=== PATIENT | female | born 1990 ===

== ENCOUNTER 2016-10-16 12:34 | Emergency (ER) | payer MEDICAID, OTHER ==
[2016-10-16 12:35] VITALS: BMI 27.8
[2016-10-16 12:55] VITALS: BP 95/63; PULSE 74; RESP 14; TEMP 98; O2SAT 100
[2016-10-16] MEDS ORDERED: Sodium Chloride 0.9% 1,000 ML IV STA (12:57)
--- NOTE | 2016-10-16 13:18 | ED PDOC ---
HPI: Female Pain Time Seen by Provider: 10/16/16 12:52 Chief Complaint (Nursing): Female Genitourinary Chief Complaint (Provider): Female Genitourinary History Per: Patient History/Exam Limitations: no limitations Onset/Duration Of Symptoms: Days (1x) Current Symptoms Are (Timing): Still Present Severity: Moderate Associated Symptoms: Other (vaginal bleeding) Additional Complaint(s): 26 year old female and 15 weeks gestation with no pertinent medical history presents to the ED with complaints of vaginal bleeding that started today. She reports that she has an appointment for care with her immigration case worker 10/21/2016. She denies having any abdominal pain, fevers, and chills. PMD: Not provided. Abnormal Vaginal Bleeding: Yes : 4 Para: 1 Past Medical History Reviewed: Historical Data, Nursing Documentation, Vital Signs Vital Signs: Last Vital Signs Temp 98 F 10/16/16 12:55 Pulse 74 10/16/16 12:55 Resp 14 10/16/16 12:55 BP 95/63 L 10/16/16 12:55 Pulse Ox 100 10/16/16 12:55 - Medical History PMH: No Chronic Diseases - Surgical History Surgical History: No Surg Hx - Family History Family History: States: No Known Family Hx - Social History Current smoker - smoking cessation education provided: No Alcohol: None Drugs: Denies - Home Medications Home Medications: Ambulatory Orders Medication Instructions Recorded Ibuprofen [Motrin] 600 mg PO Q6 PRN #20 tab 12/15/14 Norgestimate-Ethinyl Estradiol 1 tab PO DAILY 12/15/14 [Vermilion-Linyah 35 Mcg-0.25 mg] Multivit/Folic Acid/I 1 tab PO DAILY #30 tab 10/16/16 [ Plus] - Allergies Allergies/Adverse Reactions: Allergies Allergy/AdvReac Type Severity Reaction Status Date / Time No Known Allergies Allergy Verified 02/20/14 18:59 Review of Systems ROS Statement: Except As Marked, All Systems Reviewed And Found Negative Constitutional: Negative for: Fever, Chills Gastrointestinal: Negative for: Abdominal Pain Genitourinary Female: Positive for: Vaginal Bleeding Physical Exam - Reviewed Nursing Documentation Reviewed: Yes Vital Signs Reviewed: Yes - Physical Exam Appears: Positive for: Well, Non-toxic, No Acute Distress Head Exam: Positive for: ATRAUMATIC, NORMOCEPHALIC Skin: Positive for: Normal Color, Warm, Dry Eye Exam: Positive for: Normal appearance Neck: Positive for: Normal Cardiovascular/Chest: Positive for: Regular Rate, Rhythm Respiratory: Positive for: Normal Breath Sounds. Negative for: Respiratory Distress Gastrointestinal/Abdominal: Positive for: Normal Exam, Soft. Negative for: Tenderness Pelvic Exam: Positive for: Other (Machine Captain: CAMILA Quinteros. closed OS. no blood noted. ). Negative for: Active Bleeding, Blood Extremity: Positive for: Normal ROM Neurologic/Psych: Positive for: Alert, Oriented (3x) - Laboratory Results Result Diagrams: 10/16/16 13:25 10/16/16 13:25 - ECG O2 Sat by Pulse Oximetry: 100 (RA) Pulse Ox Interpretation: Normal - CT Scan/US US OB Other Rad Studies (CT/US): Read By Radiologist, Radiology Report Reviewed - Progress ED Course And Treament: 14:51 US OB read and reviewed by radiologist. FINDINGS: UTERUS: Gestational sac: Single live intrauterine fetus in transverse presentation. Heart rate: 162 bpm. BPD: 3.22 cm corresponding to 16 weeks and 0 days of gestational age. AC: 9.36 cm corresponding to 15 weeks and 4 days of gestational age. HC: 11.89 cm corresponding to 15 weeks and 6 days of gestational age. FL: 1.73 cm corresponding to 15 weeks and 1 day of gestational age. age (Ultrasound estimated): 15 weeks and 5 days María-gestational hemorrhage: None. Date of delivery (Ultrasound estimated) : 04/04/2017 Placenta is fundal. CERVIX: Long and closed. No cervical abnormality seen. RIGHT OVARY: Not visualized. LEFT OVARY: Measures 2.7 x 1.8 x 1.5 cm. No solid mass. Normal flow. FREE FLUID: None. OTHER FINDINGS: None. IMPRESSION: Single live intrauterine fetus in transverse presentation with mean gestational age of 15 weeks and 5 days. Placenta is fundal. Cervix is closed. Estimated date of delivery by ultrasound is 04/04/2017. RH NEGATIVE RHOGAM GIVEN. Medical Decision Making Medical Decision Makin:52 Initial impression: 26 year old female 15 weeks gestation with vaginal bleeding. Initial plan: * US OB * type and screen * bmp * beta-hcg quantitative * cbc * IV NS 1,000 ml IV 1,000 mls/hr * reevaluation Scribe Attestation: Documented by Raegan Fisher, acting as a scribe for Ger Pop PA-C. Provider Scribe Attestation: All medical record entries made by the Scribe were at my direction and personally dictated by me. I have reviewed the chart and agree that the record accurately reflects my personal performance of the history, physical exam, medical decision making, and the department course for this patient. I have also personally directed, reviewed, and agree with the discharge instructions and disposition. Disposition - Clinical Impression Clinical Impression: Threatened miscarriage - Patient ED Disposition Is Patient to be Admitted: No - Disposition Disposition: Routine/Home Disposition Time: 15:16 Condition: FAIR Prescriptions: Multivit/Folic Acid/I [ Plus] 1 tab PO DAILY #30 tab Instructions: Rho(D) Immune Globulin (By injection), Threatened Miscarriage (ED ) Forms: [employer] (Tajik), [facility] ED School/Work Excuse
[2016-10-16 13:48] LABS: BASO # 0.1 K/uL (0.0-0.2); BASO % 0.5 % (0.0-2.0); EOS # 0.2 K/uL (0.0-0.7); EOS % 1.6 % (0.0-4.0); HEMATOCRIT 33.6 % (34.0-47.0); MEAN CELL VOLUME 84.9 fl (81.0-99.0); MEAN CORPUSCULAR HEMOGLOBIN 28.8 pg (27.0-31.0); MEAN PLATELET VOLUME 7.9 fl (7.2-11.7); MONO # 0.9 K/uL (0.0-0.8); MONO % 6.6 % (0.0-10.0); NEUT % 68.3 % (50.0-75.0); NRBC % 0.1 % (0.0-0.0); RED CELL DISTRIBUTION WIDTH 14.1 % (11.5-14.5); WHITE BLOOD COUNT 13.2 K/uL (4.8-10.8)
[2016-10-16 13:59] LABS: BLOOD UREA NITROGEN 9 mg/dl (7-17); CALCIUM 9.2 mg/dL (8.4-10.2); CARBON DIOXIDE 20 mmol/L (22-30); CHLORIDE 104 mmol/L (98-107); GFR AFRICAN-AMERICAN > 60; GLUCOSE,RANDOM 82 mg/dL (65-105); POTASSIUM 3.6 MMOL/L (3.6-5.0); SODIUM 134 mmol/l (132-148)
--- NOTE | 2016-10-16 14:53 | US ---
PROCEDURE: OB Pelvic Ultrasound HISTORY: VAGINAL BLEEDING COMPARISON: None FINDINGS: UTERUS: Gestational sac: Single live intrauterine fetus in transverse presentation. Heart rate: 162 bpm. BPD: 3.22 cm corresponding to 16 weeks and 0 days of gestational age. AC: 9.36 cm corresponding to 15 weeks and 4 days of gestational age. HC: 11.89 cm corresponding to 15 weeks and 6 days of gestational age. FL: 1.73 cm corresponding to 15 weeks and 1 day of gestational age. age (Ultrasound estimated): 15 weeks and 5 days María-gestational hemorrhage: None. Date of delivery (Ultrasound estimated) : 04/04/2017 Placenta is fundal. CERVIX: Long and closed. No cervical abnormality seen. RIGHT OVARY: Not visualized. LEFT OVARY: Measures 2.7 x 1.8 x 1.5 cm. No solid mass. Normal flow. FREE FLUID: None. OTHER FINDINGS: None. IMPRESSION: Single live intrauterine fetus in transverse presentation with mean gestational age of 15 weeks and 5 days. Placenta is fundal. Cervix is closed. Estimated date of delivery by ultrasound is 04/04/2017.
== END 2016-10-16 16:50 | disposition home or self-care (01) ==
LOC: H.ER 12:34
DX: O20.0 Threatened abortion (principal); Z3A.15 15 weeks gestation of pregnancy
CPT/HCPCS: 76815; 80048; 84702; 85025; 86850; 86900; 96360; 96361; 96372; 99283; J2792; J7040

== ENCOUNTER 2016-10-24 08:45 | Emergency (ER) | payer OTHER ==
[2016-10-24 08:46] VITALS: BMI 27.8
[2016-10-24 08:52] VITALS: BP 104/54; PULSE 95; RESP 16; TEMP 98.2; O2SAT 96
--- NOTE | 2016-10-24 09:11 | ED PDOC ---
HPI: Back Time Seen by Provider: 10/24/16 08:59 Chief Complaint (Nursing): Lower Extremity Problem/Injury Chief Complaint (Provider): Back pain History Per: Patient History/Exam Limitations: no limitations Onset/Duration Of Symptoms: Gradual (throughout ) Current Symptoms Are (Timing): Still Present Additional Complaint(s): Margie is a 26 y/o female, 17 weeks , who presents to the ED with back pain. Reports having worsening back pain throughout that starts at left lower back, radiating to left buttock and down the left lateral leg. Pain worsens with movement and improves with rest. Patient has not spoken to OBGYN about it. 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 Denies dysuria, fever, trauma, weakness, numbness, and tingling. Reports good movement. Denies vaginal bleeding or discharge. Denies trauma. Denies bladder or bowel incontinence. PMD: None Past Medical History Reviewed: Historical Data, Nursing Documentation, Vital Signs Vital Signs: Last Vital Signs Temp 98.2 F 10/24/16 08:51 Pulse 95 H 10/24/16 08:51 Resp 16 10/24/16 08:51 BP 104/54 L 10/24/16 08:51 Pulse Ox 96 10/24/16 08:51 - Family History Family History: States: Unknown Family Hx - Home Medications Home Medications: Ambulatory Orders Medication Instructions Recorded Ibuprofen [Motrin] 600 mg PO Q6 PRN #20 tab 12/15/14 Norgestimate-Ethinyl Estradiol 1 tab PO DAILY 12/15/14 [Vermillion-Linyah 35 Mcg-0.25 mg] Multivit/Folic Acid/I 1 tab PO DAILY #30 tab 10/16/16 [ Plus] Nitrofurantoin Macrocrystals 100 mg PO BID #14 cap 10/24/16 [Macrobid] - Allergies Allergies/Adverse Reactions: Allergies Allergy/AdvReac Type Severity Reaction Status Date / Time No Known Allergies Allergy Verified 10/24/16 08:51 Review of Systems ROS Statement: Except As Marked, All Systems Reviewed And Found Negative Constitutional: Negative for: Fever, Chills Cardiovascular: Negative for: Chest Pain, Palpitations Respiratory: Negative for: Shortness of Breath Gastrointestinal: Negative for: Nausea, Vomiting, Abdominal Pain, Constipation Genitourinary Female: Negative for: Dysuria, Frequency, Incontinence, Vaginal Discharge Musculoskeletal: Positive for: Back Pain (left lower), Leg Pain (left). Negative for: Other (Trauma) Neurological: Negative for: Weakness, Numbness (and tingling) Physical Exam - Reviewed Nursing Documentation Reviewed: Yes Vital Signs Reviewed: Yes - Physical Exam Appears: Positive for: Well, Non-toxic, No Acute Distress Head Exam: Positive for: ATRAUMATIC, NORMAL INSPECTION, NORMOCEPHALIC Skin: Positive for: Normal Color, Warm, Dry Eye Exam: Positive for: EOMI, Normal appearance, PERRL Neck: Positive for: Normal, Painless ROM, Supple Cardiovascular/Chest: Positive for: Regular Rate, Rhythm. Negative for: Murmur Respiratory: Positive for: Normal Breath Sounds. Negative for: Accessory Muscle Use, Respiratory Distress Gastrointestinal/Abdominal: Positive for: Soft, Other (Gravid). Negative for: Tenderness Back: Positive for: Normal Inspection, Other (negative straight leg raise). Negative for: L CVA Tenderness, R CVA Tenderness, Vertebral Tenderness, Decreased ROM, Muscle Spasm Extremity: Positive for: Normal ROM. Negative for: Pedal Edema, Deformity Neurologic/Psych: Positive for: Alert, Oriented, Gait (steady). Negative for: Motor/Sensory Deficits - ECG O2 Sat by Pulse Oximetry: 96 (RA) Pulse Ox Interpretation: Normal Medical Decision Making Medical Decision Making: Time: 9:19 Initial Plan: --UA ordered --Patient given Tylenol, 650 mg PO --Macrobid 100 mg PO Time: 9:47 Clinical Impression: UTI in Patient is neurologically intact and back pain is consistent with sciatica. She is ambulating around the ED without issue. UA shows trace blood, negative nitrates and small leukocytes. She denies dysuria, frequency or hesistancy, but due to will treat asymptomatic bacteruria. Upon provider reevaluation patient is medically stable, and requires no further treatment in the ED at this time. Patient will be discharged with Rx for Macrobid. Counseling was provided and all questions were answered regarding diagnosis and need for follow up with battery mechanic in 2 days. There is agreement to discharge plan. Return if symptoms persist or worsen. Scribe Attestation: Documented by Genny Ulloa, acting as a scribe for Halie Swan MD Provider Scribe Attestation: All medical record entries made by the Scribe were at my direction and personally dictated by me. I have reviewed the chart and agree that the record accurately reflects my personal performance of the history, physical exam, medical decision making, and the department course for this patient. I have also personally directed, reviewed, and agree with the discharge instructions and disposition. Disposition - Clinical Impression Clinical Impression: UTI in - Patient ED Disposition Is Patient to be Admitted: No Counseled Patient/Family Regarding: Studies Performed, Diagnosis, Need For Followup, Rx Given - Disposition Disposition: Routine/Home Disposition Time: 09:46 Condition: GOOD Additional Instructions: Take full course of antibiotics. Return to ED if condition worsens. Follow-up with your battery mechanic within 2 days. Prescriptions: Nitrofurantoin Macrocrystals [Macrobid] 100 mg PO BID #14 cap Instructions: Urinary Tract Infection in (ED) Forms: [employer] (Turkish), [facility] ED School/Work Excuse
[2016-10-24 10:59] LABS: RBC URINE 4 /hpf (0-3); URINE BILIRUBIN NEGATIVE (NEGATIVE); URINE BLOOD NEGATIVE (NEGATIVE); URINE COLOR YELLOW (YELLOW); URINE GLUCOSE (UA) NEG (Normal); URINE KETONE NEGATIVE (NEGATIVE); URINE LEUKOCYTE ESTERASE LARGE Leu/uL (Negative); URINE PROTEIN NEGATIVE (NEGATIVE); URINE UROBILINOGEN 0.2-1.0 mg/dL (0.2-1.0)
[2016-10-24 11:01] LABS: WBC URINE 5 /hpf (0-5)
== END 2016-10-24 10:22 | disposition home or self-care (01) ==
LOC: H.ER 08:45
DX: O23.42 Unspecified infection of urinary tract in pregnancy, second trimester (principal); Z3A.17 17 weeks gestation of pregnancy

== ENCOUNTER 2016-12-06 14:12 | Emergency (ER) | payer OTHER ==
--- NOTE | 2016-12-06 15:52 | OBHP ---
Datetime: 12/06/2016 15:48 IP Adm Impression: , intrauterine IP Admit Plan: Observation/Evaluation; Discharge home Admit Comment, IP Provider: Patient is a @ 23.0 with decreased movement. Patient denie s VB, leaking, no ctxns. NO signs of dysuria, fundal tenderness, fever, signs of chorio or labor. Pat ient denies any antepartum issues, any medical problems, no surgeries. On doppler, able to auscultate FHR = 140s. No conttractions seen. Patient otherwise appeared comfortable. Appropriate FHR auscultat ed, so will discharge patient home. Labor precautions given, Pt has follow up with primary doctor on 12/16. Pelvic Type - PN: Adequate Extremities - PN: Normal Abdomen - PN: Normal Back - PN: Normal Breast - PN: Normal Lungs - PN: Normal Heart - PN: Normal Thyroid - PN: Normal Neurologic - PN: Normal HEENT - PN: Normal General - PN: Normal FHR - Baseline A Provider: 140s Vital Signs Provider: Reviewed; Within Normal Limits IP Chief Complaint: Decreased movement Genitourinary Exam: Normal DTRs - PN: Normal
--- NOTE | 2016-12-06 15:54 | OBDCSUM ---
Datetime: 12/06/2016 15:15 Discharged to, Provider: Home Follow up at, Provider: Dr Villarreal Disch Instr Activity: Normal activity Disch Instr Diet: Regular Discharge Instructions, Provider: Routine instructions given Discharge Time: 12/06/2016 15:15 Follow up in weeks, Provider: 1 week Disch Referrals: None Contraception discussed, Prov: Yes Discharge Diagnosis Prov Other: decreased movement
[2016-12-06 19:24] VITALS: BP 111/60; PULSE 81
== END 2016-12-06 15:23 | disposition home or self-care (01) ==
LOC: H.EROB2 14:12 → H.L&D 14:28 → H.EROB2 15:23
DX: O36.8120 Decreased fetal movements, second trimester, not applicable or unspecified (principal); Z3A.23 23 weeks gestation of pregnancy